=== PATIENT | male | born 1960 | race Caucasian/White ===

== ENCOUNTER → 2018-04-29 | Day surgery (SDC) | payer OTHER ==
[2018-04-27 19:03] LABS: BLOOD UREA NITROGEN 22 mg/dL (7-26); BUN/CREATININE RATIO 27 (6-25); CALCIUM 10.7 mg/dL (8.4-10.2); CHLORIDE 107 mmol/L (98-107); CREATININE, SERUM 0.83 mg/dL (0.72-1.25); EST GLOMERULAR FILTRATION RATE > 60 ML/MIN (60-); GLUCOSE 101 mg/dL (74-118); POTASSIUM 4.4 mmol/L (3.5-5.1); SODIUM 141 mmol/L (136-145)
[2018-04-27 21:28] LABS: ANION GAP 10.4 mmol/L (8-16)
[2018-04-27 21:29] LABS: CARBON DIOXIDE 28 mmol/L (22-29)
[~2018-04-29] MED LIST: ACETAMINOPHEN 1000 MG/100 ML 100 ML IV ONE; ACETAMINOPHEN 1000 MG/100 ML IV ONE; BUPIVACAINE HCL 0.5% INJ 30 ML VIAL INJ ONE; CEFAZOLIN SOD 1 GM VIAL ONE; DEXAMETHASONE SOD PHOS 10 MG/1 ML VIAL ONE; DEXAMETHASONE SOD PHOS INJ 4 MG/ML VIAL ONE; FENTANYL CITRATE/PF 100MCG/2 ML INJ ONE; JANUMET 50-1,01 EACH PO; KETOROLAC TROMETHAMINE 30 MG/ML VIAL ONE; LEVOTHYROXINE100 MC1 PO; LIDOCAINE HCL 2% LOCAL INJ 5 ML SDV VIAL INJ ONE; MIDAZOLAM HCL 2 MG/2 ML VIAL ONE; ONDANSETRON HCL INJ 2 MG/ML VIAL ONE; PROPOFOL IV EMULSION 10 MG/ML 20 ML VIAL ONE; SEVOFLURANE INHAL SOLN 250 ML PEN BTL ONE; [UNRECOGNIZED DRUG - OTHER] PO
[2018-04-29 09:20] VITALS: BP 131/84
--- NOTE | 2018-05-05 08:06 | Operative Report ---
DATE OF PROCEDURE: April 29, 2018 PREOPERATIVE DIAGNOSES 1. Left 3rd digit hammertoe. 2. Left 2nd metatarsal hypertrophied condyle. POSTOPERATIVE DIAGNOSES 1. Left 3rd digit hammertoe. 2. Left 2nd metatarsal hypertrophied condyle. PLANNED PROCEDURES 1. Left hammertoe digit arthroplasty. 2. Left 2nd metatarsal condylectomy. SURGEON: Bull Sánchez DPM MANUFACTURING CLERK: Calvin Ravi DPM ANESTHESIA: General with a postoperative block consisting of 10 mL of 0.5% Marcaine plain. HEMOSTASIS: Pneumatic ankle tourniquet set at 350 mmHg for a total time of approximately 25 minutes. MATERIALS: One 0.062 K-wire, 3-0 Vicryl, 4-0 Prolene. ESTIMATED BLOOD LOSS: Less than 10 mL. PATHOLOGY: None. PROCEDURE IN DETAIL: Patient was seen in the preoperative waiting room, where the correct procedure and site was identified. The patient was brought into the operating room placed on the operating table in supine position. General anesthesia was initiated. At this time, a well-padded pneumatic tourniquet was placed about the patient's right ankle. The right foot, ankle, leg were then scrubbed, prepped, and draped in the usual aseptic manner. The right foot and ankle were exsanguinated with an Esmarch bandage. The pneumatic thigh tourniquet was inflated to 350 mmHg for a total time of approximately 25 minutes. Attention was directed to the dorsal aspect of the 2nd digit where a 1.5-cm linear incision made directly over the proximal interphalangeal joint. Incision was carried through subcutaneous tissue it from deeper underlying structures. All vital neurovascular structures were identified, retracted medial and laterally. All bleeders were cauterized or ligated as deemed necessary. At this time, a tenotomy and capsulotomy was performed at the level of the proximal interphalangeal joint and the head of the proximal phalanx was excised, passed off to the back table, and the base of the middle phalanx was denuded of all articular cartilage. Next, attention was directed to the 2nd metatarsophalangeal joint, where a second 1.5-cm linear incision was made. At this time, extensor tenotomy was performed to the 1st digit of the extensor digitorum longus tendon. Next, a linear capsulotomy was performed at the 2nd metatarsophalangeal joint. Utilizing a McGlamry elevator, the 2nd metatarsophalangeal joint was freed. Utilizing an osteotome and mallet, the plantar condyles of the 2nd metatarsal head was excised, passed off to the back table. Both wounds were flushed with copious amounts of sterile saline. Next, a double-ended 0.062 K-wire was drilled through the middle distal phalanx and retrograded back into the proximal phalanx and into the metatarsal head. This was confirmed via intraoperative fluoroscopy to be in correct location. Next, the subcutaneous and deep tissue were reapproximated with 3-0 Vicryl. The tendon was reapproximated with 3-0 Vicryl. The skin was closed using simple interrupted sutures with 4-0 Prolene. The incision site was then dressed with Adaptic, 4 x 4's, Kerlix, Mejia wrap, and a postop shoe. The K-wire was bent, cut, and pinned. Patient tolerated the procedure and anesthesia well. Patient was then transferred to the postoperative recovery room with vital signs stable and vascular status intact. Patient was monitored there for a short period time before being sent home with the following written and oral instructions. 1. Keep the dressing clean, dry, and intact. 2. The patient is to remain minimal partial weightbearing in a postop shoe and to avoid excessive ambulation until being seen in the office. 3. The patient was given the office number and instructed to contact us if any problems should arise. Dictated By: Dr. Calvin Ravi DPM Job#: [id number] CQ [id number]
--- OUTSIDE RECORDS SUMMARY | 2018-05-05 12:30 | XMS REPORT ---
Author Author [facility] Address Unknown Phone Unavailable Care Team Providers Care Lead [employer] Name Role Phone ABRAHAN BISWAS Unavailable Unavailable Problems This patient has no known problems. Allergies, Adverse Reactions, Alerts This patient has no known allergies or adverse reactions. Medications This patient has no known medications. Results Test Description Test Time Test Comments Text Results Atomic Results Result Comments HAND BILATERAL 3 OR MORE VIEWS [place] [id number] Patient Name: GALLITO MUSA MR #: [id number] : 1960 Age/Sex: 56/M Req #: [id number] Adm Physician: Ordered by: ABRAHAN BISWAS MD Report #: [id number] Location: [facility] Room/Bed: Procedure: [id number] DX/HAND BILATERAL 3 OR MORE VIEWS Exam Date: Exam Time: REPORT STATUS: Signed PROCEDURE: HAND BILATERAL 3 OR MORE VIEWS INDICATION: Swelling and stiffness, no history of injury COMPARISON: None. FINDINGS: Right: The distal radius and ulna are intact. There is mild negative ulnar variance. The carpal bones are intact and normally aligned. The digits are intact. There is mild proximal and distal IP joint space narrowing of all digits. A small osteophyte is at the base of the distal phalanx of the first digit. No focal osseous lesions. No periarticular erosions. Left: The distal radius and ulna are intact with mild negative ulnar variance. The carpal bones are intact and normally aligned. The digits are intact. There is mild proximal and distal IP joint narrowing of all digits. No osteophytic lipping or periarticular erosions. No focal osseous lesions. CONCLUSION: Mild degenerative changes of the hands. Dictated by: Levi Luque M.D. on 04/23/2017 at 18:15 Electronically approved by: Levi Luque M.D. on 04/23/2017 at 18:15 Dictated By: LEVI LUQUE MD 14 Transcribed By: LEWIS on 04/23/171814 COPY TO: ABRAHAN BISWAS MD
== END | disposition home or self-care (01) ==
LOC: OR 05:26
PROVIDERS: ATTEND Podiatrist Foot & Ankle Surgery
DX: M20.5X2 Other deformities of toe(s) (acquired), left foot (principal); M89.372 Hypertrophy of bone, left ankle and foot; I10 Essential (primary) hypertension; E11.9 Type 2 diabetes mellitus without complications; E66.9 Obesity, unspecified; G47.33 Obstructive sleep apnea (adult) (pediatric); F41.9 Anxiety disorder, unspecified; Z01.810 Encounter for preprocedural cardiovascular examination; Z01.812 Encounter for preprocedural laboratory examination; Z79.84 Long term (current) use of oral hypoglycemic drugs
CPT/HCPCS: 28285; 28288; 36415 ×2; 80048; 82948; 93005; J0690; J1100; J1885; J2001; J2250; J2405; C1713